=== PATIENT | female | born 1960 | race Caucasian/White ===

== ENCOUNTER 2020-12-18 05:30 | Emergency (ER) | payer MEDICAID ==
[~2020-12-18] VITALS: Ht 157.5 cm; Wt 99.8 kg
--- NOTE | 2020-12-18 05:45 | NUR ---
Kwame mclaughlin in [facility] - 12/18/20 at 0615 by CASA SEEN AND EXAMINED BY LUCIANO
--- NOTE | 2020-12-18 05:45 | NUR ---
TO TENT BIBA
[2020-12-18 06:01] VITALS: BP 127/61
--- NOTE | 2020-12-18 06:35 | NUR ---
SENT AND EXAMINED BY ERMD WITH ORDERS
--- NOTE | 2020-12-18 07:05 | NUR ---
SWAB REYNA FALCON TO LAB
[2020-12-18] MEDS ORDERED: PRED20TA5 PO (08:15)
[2020-12-18] MEDS ORDERED: ALBU0.0912 IH (08:15)
--- NOTE | 2020-12-18 09:00 | NUR ---
Patient discharged with v/s stable. Written and verbal after care instructions given and explained. Patient alert, oriented and verbalized understanding of instructions. Ambulatory with to home. All questions addressed prior to discharge. ID band removed. Patient advised to follow up with PMD. Rx of HHN,ALBUTEROL SULFATE, PREDNISON given. Patient educated on indication of medication including possible reaction and side effects. Opportunity to ask questions provided and answered.
[2020-12-18 09:23] VITALS: BP 122/57
== END 2020-12-18 09:00 | disposition home or self-care (01) ==
LOC: MED 05:30
DX: R05 Cough (principal); Z20.822 Contact with and (suspected) exposure to COVID-19; R06.02 Shortness of breath; J44.9 Chronic obstructive pulmonary disease, unspecified; F17.200 Nicotine dependence, unspecified, uncomplicated; Z79.899 Other long term (current) drug therapy
CPT/HCPCS: 71045; 99284; U0003